=== PATIENT | male | born 1960 | race Caucasian/White ===

== ENCOUNTER 2023-04-15 16:34 | Emergency (ER) | payer OTHER ==
[2023-04-15] MEDS ORDERED: LIDOCAINE 1% 20 ML MDV ONE (17:03)
[2023-04-15] MEDS ORDERED: BUPIVACAINE 0.5% PF 10 ML VIAL ONE (17:03)
[2023-04-15] MEDS ORDERED: TDAP (DIPHTH,PERTUSS(ACELL),TET VAC) 0.5 ML VIAL IMVAC ONE (17:04)
--- NOTE | 2023-04-15 17:54 | RAD REPORT ---
EXAM DESCRIPTION: RAD - Knee Left 3 View - 04/15/2023 5:48 pm CLINICAL HISTORY: fall, laceration COMPARISON: No comparisons TECHNIQUE: Left knee, 3 views. FINDINGS: No fracture, dislocation or periosteal reaction.No joint effusion seen. No joint space rojelio rowing. Anterior soft tissue irregularity just above and medial to the patella, with linear gas, comp atible with laceration. IMPRESSION: No acute osseous abnormality. Anterior laceration as above.
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
[2023-04-15] MEDS ORDERED: CIPROFLOXACIN HCL 500 MG TAB ONE (19:02)
[2023-04-15] MEDS ORDERED: DOXYCYCLINE 100 MG CAP PO ONE (19:03)
[2023-04-15 19:34] VITALS: TEMP 98
[2023-04-15 19:37] VITALS: BP 149/84; O2SAT 99
== END 2023-04-15 19:24 | disposition home or self-care (01) ==
LOC: ER 16:34
PROC: 0HQLXZZ Repair Left Lower Leg Skin, External Approach (ICD-10-PCS; principal; 2023-04-15)
DX: S81.012A Laceration without foreign body, left knee, initial encounter (principal); Z23 Encounter for immunization
CPT/HCPCS: 73562; 90471; 99285; 12002; J2001